=== PATIENT | male | born 1940 | race Caucasian/White ===

== ENCOUNTER 2020-03-04 17:51 | Inpatient (IN) ==
[2020-03-04 18:58] LABS: Basophils % 0.3 %; Eosinophils # 0.2 K/mcL (0.0-0.6); Eosinophils % 1.4 %; Hematocrit 26.3 % (37.5-50.1); Hemoglobin 8.3 g/dL (12.9-16.9); Immature Granulocytes % 0.5 % (0-4); Lymphocytes # 1.7 K/mcL (0.6-4.6); Lymphocytes % 13.1 %; Mean Corpuscular HGB Conc 31.6 g/dL (31.6-35.5); Mean Corpuscular Hemoglobin 30.3 pg (28.0-33.3); Mean Platelet Volume 9.9 fL (9.4-12.4); Monocytes # 0.5 K/mcL (0.0-1.3); Monocytes % 3.6 %; Neutrophils # 10.7 K/mcL (1.6-8.9); Platelet Count 399 K/mcL (140-400); Red Blood Count 2.74 M/mcL (4.19-5.50); Red Cell Distribution Width 13.2 % (11.5-14.5); Segmented Neutrophils % 81.1 %; White Blood Count 13.2 K/mcL (4.3-11.1)
[2020-03-04 19:06] LABS: ABG Base Excess 11 mEq/L (-2 to 3); ABG HCO3 35 mEq/L (21-27); ABG Oxygen Saturation 91 % (95-98); ABG PCO2 43 mmHg (35-45); ABG PH 7.53 pH Units (7.32-7.45); ABG PO2 54 mmHg (85-104); ABG TCO2 37 mEq/L (20-26)
[2020-03-04 19:08] LABS: Alanine Aminotransferase 16 Units/L (7-52); Albumin/Globulin Ratio 0.7 (1.1-2.2); Alkaline Phosphatase 117 Units/L (34-104); Aspartate Amino Transferase 18 Units/L (13-39); BUN/Creatinine Ratio 75 (6-26); Bilirubin,Direct 0.1 mg/dL (0.0-0.2); Bilirubin,Indirect 0.3 mg/dL (0.0-1.0); Bilirubin,Total 0.4 mg/dL (0.3-1.0); Blood Urea Nitrogen 98 mg/dL (8-23); Calcium 10.2 mg/dL (8.6-10.3); Carbon Dioxide 34 mEq/L (23-29); Chloride 97 mEq/L (98-107); Globulin 4.1 g/dL (2.4-3.5); Glucose 196 mg/dL (70-105); Osmolality,Calculated 320 (280-300); Sodium 137 mEq/L (136-145); Total Protein 7.1 g/dL (6.4-8.9); eGFR For African Americans > 60 (> 60); eGFR For Non-African Americans 53 (> 60)
[2020-03-04 19:13] LABS: Troponin I 0.07 ng/mL (< 0.04)
[2020-03-04 19:17] LABS: INR 1.1
[2020-03-04 19:19] LABS: Activated Partial Thrombo Time 26.5 Seconds (26.0-36.0)
[2020-03-04 19:29] LABS: Thyroid Stimulating Hormone 1.303 mcIU/mL (0.340-5.600)
[2020-03-04] MEDS ORDERED: 0.9 % Sodium Chloride 1,000 ML IVC ONE (20:12)
[2020-03-04 20:50] LABS: Bilirubin,Urine Negative (Negative); Blood,Urine Large (Negative); Clarity,Urine Turbid (Clear); Color,Urine Yellow (Yellow); Glucose,Urine (UA) Normal (Normal); Ketones,Urine Negative (Negative); Leukocyte Esterase,Urine Large (Negative); Nitrite,Urine Negative (Negative); Protein,Urine 70 mg/dL (Neg-Trace); Specific Gravity,Urine 1.013 (1.010-1.025); Urobilinogen,Urine Normal (Normal)
[2020-03-04 20:51] LABS: Amphetamine Screen,Urine Negative ng/mL (Cutoff=1000); Barbiturate Screen,Urine Negative ng/mL (Cutoff=200); Benzodiazepines Screen,Urine Negative ng/mL (Cutoff=200); Cannabinoid Screen,Urine Negative ng/mL (Cutoff = 50); Cocaine Screen,Urine Negative ng/mL (Cutoff= 300); Opiate Screen,Urine Negative ng/mL (Cutoff=300); Phencyclidine Screen,Urine Negative ng/mL (Cutoff=25)
[2020-03-04] MEDS ORDERED: Scopolamine Patch 1.5 MG PATCH.TD72 TD SCH (23:45)
[2020-03-04] MEDS ORDERED: Morphine Sulfate 2 MG/ML SYRINGE IVP PRN (23:59)
[2020-03-04] MEDS ORDERED: Haloperidol Lactate 5 MG/ML VIAL IVP PRN (23:59)
[2020-03-04] MEDS ORDERED: *HR* LORazepam 0.5 MG TABLET PO PRN (23:59)
[2020-03-04] MEDS ORDERED: Atropine Sulfate 1% 40 DROP/2 ML BOTTLE SL PRN (23:59)
[2020-03-05] MEDS ORDERED: Naloxone 0.4 MG/ML INJ IVP PRN (00:03)
[2020-03-05] MEDS ORDERED: *HR* Promethazine 25 MG/ML VIAL IVP PRN (00:03)
[2020-03-05] MEDS ORDERED: 0.9 % Sodium Chloride 1,000 ML IVC SCH (00:15)
[2020-03-05] MEDS ORDERED: *HR* LORazepam 2 MG/ML VIAL IVP PRN (10:04)
[2020-03-05] MEDS: Haloperidol Lactate 5 MG/ML VIAL IVP SCH ×3 (10:39→23:54)
[2020-03-05] MEDS: Morphine Sulfate 2 MG/ML SYRINGE IVP PRN ×3 (10:41→23:54)
[2020-03-06] MEDS: Morphine Sulfate 2 MG/ML SYRINGE IVP PRN (06:01)
[2020-03-06] MEDS: Haloperidol Lactate 5 MG/ML VIAL IVP SCH ×3 (06:01→17:02)
[2020-03-06] MEDS: Morphine Sulfate 2 MG/ML SYRINGE IVP SCH ×3 (11:44→20:02)
[2020-03-06 19:37] VITALS: BP 92/56
== END 2020-03-06 23:40 | disposition expired | DRG 951 ==
LOC: EMEROOARM 17:51 → 2ANU 17:51 → SUATTDRO 23:06 → 2ANU 23:31
PROVIDERS: ADMIT Internal Medicine; ATTEND Internal Medicine